=== PATIENT | female | born 1985 | race Caucasian/White ===

== ENCOUNTER 2020-06-19 03:19 | Inpatient (IN) ==
[2020-06-19] MEDS ORDERED: HYDROmorphone INJ 0.5 MG/0.5 ML SYR IV STA (03:50)
[2020-06-19] MEDS ORDERED: PROMETHAZINE 12.5 MG/50.5 ML BAG IV STA ×2 (03:50→07:36)
[2020-06-19] MEDS ORDERED: SODIUM CHLORIDE 0.9% 1000ML 1,000 ML IV ONE ×2 (03:50→06:43)
--- NOTE | 2020-06-19 04:24 | Emergency Department Note ---
History of Present Illness General Chief complaint: Rectal Bleed Stated complaint: RECTAL BLEED,NAUSEA,VOMITING Time Seen by Provider: 06/19/20 03:33 Source: patient Mode of arrival: ambulatory Limitations: no limitations History of Present Illness Provider complaint: nausea, vomiting, bloody diarrhea, abdominal pain Onset (ago): day(s) 2 Location: abdomen Radiation: non-radiation Severity: moderate Pain Consistency: + constant Maximum Pain Intensity: 6 Quality: + constant Relieved By: + none Exacerbated By: + none Associated symptoms: + loss of appetite, + nausea/vomiting and + weakness; no fever/chills Treatments prior to arrival: none This is a 34-year-old female with complicated past medical history including Crohn's disease who presents due to concern for possible Crohn's flare. Patient states 2 days ago she began having abdominal pain and nausea, and then last night developed vomiting and diarrhea. Patient states there is no blood in her emesis, however her bowel movements have been grossly bloody with passage of small clots. Patient states her abdominal pain is in the left mid abdomen which is consistent with prior Crohn's flares. Patient states Crohn's flares are typically triggered by dietary change or stress. Patient denies any recent change in medications. Patient does take anticoagulation due to a history of factor V Leiden and prior blood clots. Patient does get Humira injections help with her Crohn's disease. Patient states she has not seen her executive chef in some time, however states he is at [facility]. Patient denies any accompanying fevers or chills. Patient denies any known exposure to any coronavirus positive individuals. Patient does admit to recent travel, stating that she and family were at [place] 2 weeks ago. Pt states this feels like her usual Crohn's flare. She does not want a CT as she has had multiple in her lifetime. Pt seen during a time of high acuity and national emergency pandemic while wearing PPE. Home Medications Home Medications Medication Instructions Recorded Confirmed Type dicyclomine [Bentyl] 0 mg IM UD PRN 04/07/20 06/19/20 History infliximab [Remicade] 0 mg IV Q8WK 04/07/20 06/19/20 History multivitamin 1 tab PO QAM 04/07/20 06/19/20 History Allergies Allergy/AdvReac Type Severity Reaction Status Date / Time metoclopramide Allergy Intermediate nausea/vomi Unverified 06/19/20 06:15 ting oxycodone Allergy Intermediate pruritis Unverified 06/19/20 06:15 adhesive Allergy Mild skin Unverified 06/19/20 06:15 irritation Penicillins Allergy Mild rx as a Unverified 06/19/20 06:15 child prochlorperazine Allergy Mild nausea/vomi Unverified 06/19/20 06:15 ting tramadol Allergy Mild pruritis Verified 06/19/20 06:15 Iodinated Contrast Media AdvReac Mild itching Unverified 06/19/20 06:15 mushroom AdvReac Verified 06/19/20 11:46 Past Med/Surg History Medical History History of cancer of uterus Hx of Crohn's disease Ovarian torsion Surgical History History of bowel resection Hx of appendectomy Hx of cholecystectomy Hx of hysterectomy Family History Other Cancer Social History Smoking Status: Never smoker Hx Alcohol Use: Yes Hx Substance Use: No Preferred Language: Irish Beliefs That Will Affect Care: None marital status: Single Current Living Situation: Alone current occupational status: unemployed Other Information That Helps Us Care for You: No Feels Safe at Home: Yes Safety Concerns: Feels Safe At This Time Review of Systems See HPI for pertinent positives & negatives. and A total of 10 systems reviewed and were otherwise negative Physical Exam Vital Signs Vital Signs - 24 hr 06/19/20 05:09 06/19/20 05:30 06/19/20 06:00 Pulse Rate 58 L 65 63 Pulse Rate from SpO2 Sensor 58 L 64 Respiratory Rate 22 17 18 Blood Pressure 123/80 118/74 117/84 Blood Pressure Mean 103 77 89 Pulse Oximetry 96 98 100 Oxygen Delivery Method Room Air Room Air Room Air 06/19/20 06:32 06/19/20 06:33 06/19/20 07:18 Pulse Rate 77 81 69 Pulse Rate from SpO2 Sensor 70 Respiratory Rate 14 13 23 Blood Pressure 126/81 Blood Pressure Mean 92 Pulse Oximetry 100 91 Oxygen Delivery Method Room Air 06/19/20 07:26 06/19/20 07:30 06/19/20 08:00 Pulse Rate 77 89 67 Pulse Rate from SpO2 Sensor 78 Respiratory Rate 17 18 19 Blood Pressure 110/98 Blood Pressure Mean 100 Pulse Oximetry 93 Oxygen Delivery Method GENERAL: alert, well appearing, well nourished, no distress, non-toxic EYE EXAM: normal conjunctiva, PERRL and EOM's grossly intact OROPHARYNX: no exudate, no erythema, lips, buccal mucosa, and tongue normal and mucous membranes are dry NECK: supple, no nuchal rigidity, no adenopathy, non-tender, scarring noted consistent with prior central line placement LUNGS: Clear to auscultation. Normal chest wall mechanics, no w/r/r HEART: no murmurs, S1 normal and S2 normal ABDOMEN: abdomen soft, tender to palpation of the left lateral abdomen, normo- active bowel sounds, no masses, no rebound or guarding. Multiple well healed surgical scars BACK: Back is symmetrical on inspection and there is no deformity, no midline tenderness, no CVA tenderness. SKIN: no rashes and no bruising UPPER EXTREMITIES: upper extremities are grossly normal. FROM, nml pulses b/l. Multiple scars from prior IV starts, ecchymotic area to proximal RUE from recent IV infusion LOWER EXTREMITIES: No pitting edema. FROM, nml pulses b/l. NEURO EXAM: Normal sensorium, cranial nerves II-XII grossly intact, normal speech, no gross weakness of arms, no gross weakness of legs. Gross sensation intact. Procedures Central Line Placement Right IJ: Time Out Performed: Yes Patient Placed on Monitor/Pulse Ox: Yes MD Prep: mask, gown and gloves Central Line Prep: Chlorhexidine scrub and sterile drapes applied Local Anesthetic: lidocaine 1% Amount of anesthesia used (mL): 5 Ultrasound Used for Placement: Yes Central Line Lumen Inserted: triple Post Procedure: sutured in place, good blood return, all ports aspirated, flushed, capped and sterile dressing applied Post Procedure X-Ray: tip of catheter in good position and no pneumothorax seen Patient Tolerated Procedure: well Complications: none Course Course 05: Patient with a history of difficult IV access. IV team was contacted initially and was unsuccessful in obtaining labs or placing an IV on the patient. After this nursing staff and myself attempted a peripheral line with the use of ultrasound. This was unsuccessful as well and patient had difficulty tolerating this procedure due to pain. I then discussed with the patient placement of central line which she has had previously due to poor IV access. Patient states she has had these previously, and in this case feels this may be better. We discussed technique, the procedure, risks versus benefits of central line placement and she was in agreement. Consent form signed at bedside in the presence of nurse Alisa. Please see additional procedure note. Patient tolerated procedure well. 0715: Patient updated on results. Patient states she is still having abdominal pain and nausea. Still feeling itchy from the pain medications. 0722: Case discussed with Dr. Juarez. Administered Medications Diphenhydramine HCl (Benadryl) 25 mg IV Q4H PRN PRN Reason: Itching Stop: 07/19/20 09:50 Last Admin: 06/19/20 21:14 Dose: 25 mg Documented by: [id number] Admin: 06/19/20 16:57 Dose: 25 mg Documented by: [id number] Admin: 06/19/20 16:49 Dose: 25 mg Documented by: [id number] Heparin Sodium (Beef Lung) (Heparin Sod 10 Unit/Ml Flush) 5 ml FLUSH PRN PRN PRN Reason: Flush Stop: 07/19/20 10:35 Last Admin: 06/19/20 14:45 Dose: 5 ml Documented by: [id number] Admin: 06/19/20 12:40 Dose: 5 ml Documented by: [id number] Admin: 06/19/20 10:53 Dose: 5 ml Documented by: [id number] Admin: 06/19/20 10:47 Dose: 5 ml Documented by: [id number] Hydromorphone HCl (Dilaudid) 0.5 mg IV Q2H PRN PRN Reason: Pain Stop: 07/03/20 09:50 Last Admin: 06/19/20 23:34 Dose: 0.5 mg Documented by: [id number] Admin: 06/19/20 21:15 Dose: 0.5 mg Documented by: [id number] Admin: 06/19/20 18:50 Dose: 0.5 mg Documented by: [id number] Admin: 06/19/20 16:49 Dose: 0.5 mg Documented by: [id number] Admin: 06/19/20 14:44 Dose: 0.5 mg Documented by: [id number] Admin: 06/19/20 12:39 Dose: 0.5 mg Documented by: [id number] Admin: 06/19/20 10:46 Dose: 0.5 mg Documented by: [id number] Sodium Chloride (Nss 1000ml) 1,000 mls @ 80 mls/hr IV .[id number] SHANNAN Stop: 07/19/20 09:50 Last Admin: 06/19/20 20:40 Dose: 80 mls/hr Documented by: [id number] Infusion: 06/19/20 20:40 Dose: 80 mls/hr Documented by: [id number] Admin: 06/19/20 10:42 Dose: 80 mls/hr Documented by: [id number] Methylprednisolone 60 mg/ (Syringe) 0.96 mls @ 1.5 mls/min IV Q24H SHANNAN Stop: 07/19/20 09:59 Last Admin: 06/19/20 10:53 Dose: 1.5 mls/min Documented by: [id number] Iron Sucrose 300 mg/ Sodium (Chloride) 265 mls @ 176.667 mls/hr IV DAILY SHANNAN Stop: 06/21/20 10:29 Last Infusion: 06/19/20 16:24 Dose: 0 mls/hr Documented by: [id number] Admin: 06/19/20 14:37 Dose: 176.7 mls/hr Documented by: [id number] Ondansetron HCl (Zofran) 4 mg IV Q4H PRN PRN Reason: Nausea Stop: 07/19/20 09:50 Last Admin: 06/19/20 18:50 Dose: 4 mg Documented by: [id number] Discontinued Medications Dicyclomine HCl (Bentyl) 20 mg IM NOW ONE Stop: 06/19/20 07:36 Last Admin: 06/19/20 08:23 Dose: Not Given Documented by: [id number] Diphenhydramine HCl (Benadryl) Confirm Administered Dose 50 mg .ROUTE .STK-MED ONE Stop: 06/19/20 05:46 Last Admin: 06/19/20 05:59 Dose: Not Given Documented by: [id number] Diphenhydramine HCl (Benadryl) 25 mg IV NOW STA Stop: 06/19/20 05:46 Last Admin: 06/19/20 05:59 Dose: 25 mg Documented by: [id number] Diphenhydramine HCl (Benadryl) 25 mg IV NOW STA Stop: 06/19/20 06:44 Last Admin: 06/19/20 06:49 Dose: 25 mg Documented by: [id number] Diphenhydramine HCl (Benadryl) 25 mg IV Q6H PRN PRN Reason: Itching Stop: 07/19/20 09:50 Last Admin: 06/19/20 12:39 Dose: 25 mg Documented by: [id number] Famotidine (Pepcid 20mg Iv Push) 20 mg IV ONE STA Stop: 06/19/20 06:57 Last Admin: 06/19/20 07:15 Dose: 20 mg Documented by: [id number] Hydromorphone HCl (Dilaudid) 0.5 mg IV NOW STA Stop: 06/19/20 03:51 Last Admin: 06/19/20 05:59 Dose: 0.5 mg Documented by: [id number] Hydromorphone HCl (Dilaudid) 1 mg IV NOW STA Stop: 06/19/20 06:44 Last Admin: 06/19/20 06:51 Dose: 1 mg Documented by: [id number] Sodium Chloride (Nss 1000ml) 1,000 mls @ 999 mls/hr IV .Q1H1M ONE Stop: 06/19/20 04:50 Last Infusion: 06/19/20 07:44 Dose: 0 mls/hr Documented by: [id number] Admin: 06/19/20 05:59 Dose: 999 mls/hr Documented by: [id number] Promethazine HCl (Phenergan) 12.5 mg in 50.5 mls @ 202 mls/hr IV NOW STA Stop: 06/19/20 04:04 Last Infusion: 06/19/20 06:16 Dose: 0 mls/hr Documented by: [id number] Admin: 06/19/20 05:59 Dose: 202 mls/hr Documented by: [id number] Sodium Chloride (Nss 1000ml) 1,000 mls @ 999 mls/hr IV .Q1H1M ONE Stop: 06/19/20 07:43 Last Infusion: 06/19/20 08:19 Dose: 0 mls/hr Documented by: [id number] Admin: 06/19/20 07:01 Dose: 999 mls/hr Documented by: [id number] Acetaminophen (Ofirmev) 1,000 mg in 100 mls @ 400 mls/hr IV NOW STA Stop: 06/19/20 07:50 Last Admin: 06/19/20 08:24 Dose: Not Given Documented by: [id number] Promethazine HCl (Phenergan) 12.5 mg in 50.5 mls @ 202 mls/hr IV NOW STA Stop: 06/19/20 07:50 Last Admin: 06/19/20 08:25 Dose: Not Given Documented by: [id number] Medical Decision Making Differential Diagnosis Differential: Gastroenteritis, Food Borne, Esophageal Perforation, , Electrolyte Abnormality, Dehydration, Intraabdominal Infection, UTI/Pyelonephritis, Bowel Obstruction, Biliary Pathology, amongst other pathology entertained. Medical Records Attestation: I reviewed the patient's medical records. Home Medications Current Medication List: was personally reviewed by me Laboratory Data Attestation: I reviewed the patient's lab results. Result diagrams: 06/19/20 05:54 06/19/20 05:54 Lab Results 06/19/20 06/19/20 06/19/20 Range/Units 05:40 05:54 05:54 WBC (4.8-10.8) K/uL RBC (4.2-5.4) M/uL Hgb (12.0-16.0) g/dL Hct (37-47) % MCV (80-100) fL MCH (25-34) pg MCHC (32-36) g/dL RDW Std Deviation (36.4-46.3) fL RDW Coeff of Jael (11.5-14.5) % Plt Count (130-400) K/uL Immature Gran % (Auto) % Neut % (Auto) % Lymph % (Auto) % Putnam % (Auto) % Eos % (Auto) % Baso % (Auto) % Neut # (Auto) (1.4-6.5) K/uL Lymph # (Auto) (1.2-3.4) K/uL Putnam # (Auto) (0.11-0.59) K/uL Eos # (Auto) (0-0.5) K/uL Baso # (Auto) (0-0.2) K/uL Immature Gran # (Auto) (0.00-0.02) K/uL Anisocytosis Ovalocytes Sodium (136-145) mmol/L Potassium (3.5-5.1) mmol/L Chloride (98-107) mmol/L Carbon Dioxide (21-32) mmol/L Anion Gap (3-11) BUN (7-18) mg/dl Creatinine (0.6-1.2) mg/dl Est Cr Clr Drug Dosing ml/min Est GFR ( Amer) Est GFR (Non-Af Amer) BUN/Creatinine Ratio (10-20) Glucose (70-99) mg/dl Lactate 1.8 (0.4-2.0) mmol/L Calcium (8.5-10.1) mg/dl Magnesium (1.8-2.4) mg/dl Total Bilirubin (0.2-1) mg/dl AST (15-37) U/L ALT (12-78) U/L Alkaline Phosphatase (45-117) U/L Total Protein (6.4-8.2) gm/dl Albumin (3.4-5.0) gm/dl Globulin (2.5-4.0) gm/dl Albumin/Globulin Ratio (0.9-2) Lipase (73-393) U/L Urine Color Yellow Urine Appearance Cloudy A (Clear) Urine pH 5.0 (4.5-7.5) Ur Specific [place] 1.020 (1.000-1.030) Urine Protein Negative (Negative) Urine Glucose (UA) Negative (Negative) Urine Ketones Negative (Negative) Urine Blood 1+ H (Negative) Urine Nitrite Negative (Negative) Urine Bilirubin Negative (Negative) Urine Urobilinogen Negative (Negative) Ur Leukocyte Esterase Negative (Negative) Urine WBC (Auto) 1-5 (0-5) /hpf Urine RBC (Auto) 0-4 (0-4) /hpf U Hyaline Cast (Auto) 1-5 (0-5) /lpf U Epithel Cells (Auto) >30 H (0-5) /lpf Urine Bacteria (Auto) 1+ H (Negative) Blood Type B Negative Antibody Screen NEGATIVE 06/19/20 06/19/20 Range/Units 05:54 05:54 WBC 8.97 (4.8-10.8) K/uL RBC 4.45 (4.2-5.4) M/uL Hgb 11.0 L (12.0-16.0) g/dL Hct 32.5 L (37-47) % MCV 73.0 L (80-100) fL MCH 24.7 L (25-34) pg MCHC 33.8 (32-36) g/dL RDW Std Deviation 53.8 H (36.4-46.3) fL RDW Coeff of Jael 20.0 H (11.5-14.5) % Plt Count 188 (130-400) K/uL Immature Gran % (Auto) 0.8 % Neut % (Auto) 92.6 % Lymph % (Auto) 4.9 % Putnam % (Auto) 1.6 % Eos % (Auto) 0.0 % Baso % (Auto) 0.1 % Neut # (Auto) 8.31 H (1.4-6.5) K/uL Lymph # (Auto) 0.44 L (1.2-3.4) K/uL Putnam # (Auto) 0.14 (0.11-0.59) K/uL Eos # (Auto) 0.00 (0-0.5) K/uL Baso # (Auto) 0.01 (0-0.2) K/uL Immature Gran # (Auto) 0.07 H (0.00-0.02) K/uL Anisocytosis Present Ovalocytes 1+ Sodium 142 (136-145) mmol/L Potassium 3.8 (3.5-5.1) mmol/L Chloride 109 H (98-107) mmol/L Carbon Dioxide 27 (21-32) mmol/L Anion Gap 6.0 (3-11) BUN 11 (7-18) mg/dl Creatinine 0.78 (0.6-1.2) mg/dl Est Cr Clr Drug Dosing 104.2 ml/min Est GFR ( Amer) 115.8 Est GFR (Non-Af Amer) 99.9 BUN/Creatinine Ratio 14.5 (10-20) Glucose 124 H (70-99) mg/dl Lactate (0.4-2.0) mmol/L Calcium 8.9 (8.5-10.1) mg/dl Magnesium 1.8 (1.8-2.4) mg/dl Total Bilirubin 0.4 (0.2-1) mg/dl AST 9 L (15-37) U/L ALT 24 (12-78) U/L Alkaline Phosphatase 67 (45-117) U/L Total Protein 7.0 (6.4-8.2) gm/dl Albumin 3.6 (3.4-5.0) gm/dl Globulin 3.4 (2.5-4.0) gm/dl Albumin/Globulin Ratio 1.1 (0.9-2) Lipase 80 (73-393) U/L Urine Color Urine Appearance (Clear) Urine pH (4.5-7.5) Ur Specific [place] (1.000-1.030) Urine Protein (Negative) Urine Glucose (UA) (Negative) Urine Ketones (Negative) Urine Blood (Negative) Urine Nitrite (Negative) Urine Bilirubin (Negative) Urine Urobilinogen (Negative) Ur Leukocyte Esterase (Negative) Urine WBC (Auto) (0-5) /hpf Urine RBC (Auto) (0-4) /hpf U Hyaline Cast (Auto) (0-5) /lpf U Epithel Cells (Auto) (0-5) /lpf Urine Bacteria (Auto) (Negative) Blood Type Antibody Screen Blood Pressure Blood Pressure Findings: Elevated blood pressure Blood Pressure Disposition: further management by hospitalist SONALI Narrative Is a 34-year-old female who presents emergency department with complaints of recurrent Crohn's flare. Patient with nausea, vomiting, bloody diarrhea, and concern for dehydration. Pt with difficult IV access and after unsuccessful attempts at peripheral, I placed a central line. Labs sent and IVF started along with meds for nausea and pain. Patient requiring several doses of pain medication as well as nausea medication. Patient given Benadryl for itching related to pain medication. Given persistent pain, nausea, risk for worsening course or outcome given patient is immunocompromised and has complicated surgical history, I discussed with her additional inpatient management. Patient did have one additional episode of bloody diarrhea while in the emergency room. Patient wanted to avoid additional CT imaging as she has had numerous prior CTs. We opted for x-rays. No evidence at this time of bacteremia/sepsis. Patient's vital signs remained stable as she was rehydrated and attempts to control her pain and nausea. Case discussed with hospitalist for additional inpatient evaluation and management. An order was placed for continuous cardiac monitoring. The monitor shows a rate of 80 with normal sinus rhythm. Impression & Plan Crohn's disease, LLQ abdominal pain, Hematochezia, Nausea & vomiting, Acute dehydration Discharge Plan Visit Data *Final* Discharge Date/Time: 06/19/20 09:25 Chief Complaint: Rectal Bleed Stated Complaint: RECTAL BLEED,NAUSEA,VOMITING ED Provider: Kristie Hinkle Discharge Problem: Crohn's disease, LLQ abdominal pain, Hematochezia, Nausea & vomiting, Acute dehydration Patient Disposition: Admitted As Inpatient Discharge Instructions Interventions: ED Discharge Assessment Last Done: 06/19/20 09:25 Discharge Problem: Crohn's disease Qualifiers: Gastrointestinal tract location: unspecified location Digestive disease compli cation type: unspecified complication Qualified Code(s): K50.919 - Crohn's disease, unspecified, with unspecified complications Nausea & vomiting Qualifiers: Vomiting type: unspecified Vomiting Intractability: non-intractable Qualified Code(s): R11.2 - Nausea with vomiting, unspecified
[2020-06-19] MEDS ORDERED: DiphenhydrAMINE HCL 50 MG/ML VIAL IV STA ×2 (05:45→06:43)
[2020-06-19] MEDS ORDERED: DiphenhydrAMINE HCL 50 MG/ML VIAL ONE (05:45)
[2020-06-19 06:03] LABS: Basophils # (auto) 0.01 K/uL (0-0.2); Basophils % (auto) 0.1 %; Hematocrit (blood only) 32.5 % (37-47); Immature Granulocytes # (auto) 0.07 K/uL (0.00-0.02); Immature Granulocytes % (auto) 0.8 %; Lymphocytes # (auto) 0.44 K/uL (1.2-3.4); Lymphocytes % (auto) 4.9 %; Mean Corpuscular Hemoglobin 24.7 pg (25-34); Mean Corpuscular Hgb Conc 33.8 g/dL (32-36); Monocytes # (auto) 0.14 K/uL (0.11-0.59); Monocytes % (auto) 1.6 %; Neutrophils # (auto) 8.31 K/uL (1.4-6.5); Neutrophils % (auto) 92.6 %; Platelet Count 188 K/uL (130-400); RDW Standard Deviation 53.8 fL (36.4-46.3); Red Blood Count 4.45 M/uL (4.2-5.4); White Blood Count 8.97 K/uL (4.8-10.8)
[2020-06-19 06:19] LABS: Albumin Level 3.6 gm/dl (3.4-5.0); BUN Creatinine Ratio 14.5 (10-20); Calcium 8.9 mg/dl (8.5-10.1); Creatinine Clr Calc Pharmacy 104.2 ml/min; Est GFR (African American) 115.8; Est GFR (Non-African American) 99.9; Magnesium 1.8 mg/dl (1.8-2.4); Potassium 3.8 mmol/L (3.5-5.1)
[2020-06-19 06:22] LABS: Albumin Globulin Ratio 1.1 (0.9-2); Bilirubin,Total 0.4 mg/dl (0.2-1); Globulin 3.4 gm/dl (2.5-4.0)
[2020-06-19 06:39] LABS: Anisocytosis Present; Ovalocytes 1+
[2020-06-19 06:40] LABS: Appearance Urine Cloudy (Clear); Bacteria Urine Automated 1+ (Negative); Bilirubin Urine Negative (Negative); Blood Urine 1+ (Negative); Color Urine Yellow; Epithelial Cell Urine Auto >30 /lpf (0-5); Glucose Urine UA Negative (Negative); Ketones Urine Negative (Negative); Leukocyte Esterase Urine Negative (Negative); Nitrite Urine Negative (Negative); Protein Urine Negative (Negative); RBC Urine Automated 0-4 /hpf (0-4); Urobilinogen Urine Negative (Negative)
[2020-06-19] MEDS ORDERED: HYDROmorphone INJ 1 MG/ML SYRINGE IV STA (06:43)
[2020-06-19] MEDS ORDERED: FAMOTIDINE 20MG/5ML IV PUSH IV STA (06:56)
--- NOTE | 2020-06-19 07:26 | XRay Report ---
SINGLE VIEW CHEST CLINICAL HISTORY: Central venous catheter placement. FINDINGS: An AP, portable, upright chest radiograph is compared to study performed earlier the same d ay 06/19/2020. The examination is degraded by portable technique and patient rotation. A right interna l jugular central venous catheter has been placed. The tip projects over the SVC. The cardiomediastin al silhouette is unremarkable. The lungs and pleural spaces are clear. No pneumothorax is seen. The b adwoa thorax is grossly intact. IMPRESSION: 1. A right internal jugular central venous catheter has been placed as above. 2. No pneumothorax is seen post procedure. 3. There is no airspace consolidation or large pleural effusion. ACT 112: Negative or not required by law. Electronically signed by: Reggie Contreras M.D. 06/19/2020 7:25 AM
[2020-06-19] MEDS ORDERED: DICYCLOMINE HCL 10 MG/ML 2 ML AMP/VIAL IM ONE (07:35)
[2020-06-19] MEDS ORDERED: ACETAMINOPHEN 1,000 MG/100 ML VIAL IV STA (07:36)
--- NOTE | 2020-06-19 08:15 | XRay Report ---
AP CHEST WITH ABDOMINAL SERIES CLINICAL HISTORY: Nausea and vomiting. Diarrhea. FINDINGS: An AP upright chest radiograph is obtained. No prior studies are available for comparison at the time of dictation. The cardiomediastinal silhouette is unremarkable. The lungs and pleural spaces are patric ar. No pneumothorax is seen. The bony thorax is grossly intact. Supine and erect abdominal radiographs are correlated with abdominal CT dated 04/07/2020. Cholecystect umang clips are seen in the right upper quadrant and an IVC filter is in place. Suture material seen in the right mid abdomen. Surgical clips and suture material are noted in the pelvis. There is a nonobs tructed abdominal bowel gas pattern. No evidence of intraperitoneal free air is seen. There are no ab normal abdominal calcifications. Excreted IV contrast fills the bladder. The lumbosacral spine and kev ny pelvis appear intact. IMPRESSION: 1. No active disease in the chest. 2. Nonobstructed abdominal bowel gas pattern. 3. Postsurgical changes as above. ACT 112: Negative or not required by law. Electronically signed by: Reggie Contreras M.D. 06/19/2020 8:13 AM
--- NOTE | 2020-06-19 08:25 | History & Physical Report ---
Date of Service June 19, 2020 Assessment & Plan (1) Crohn's disease: Per patient, longstanding Crohn's with many prior surgeries. Has been to [facility] and [facility] in the past. Presently reports several days of diarrhea and bloody bowel movements. - IV steroids - IV fluids - Pain and nausea control - GI consult -> Will consult [facility] as she reports prior hx with [facility] in [place] (2) DVT prophylaxis: Has IVC filter, so must have had a DVT at some point. - SCDs - With active bleeding. History of Present Illness Primary Care Provider: NO PCP 34yo F w/ hx of Crohn's disease with many prior surgeries who presents with mild/moderate Crohn's flare. Reports that she has been in [place] since Tuesday visiting her boyfriend and began to have 15-20 mildly bloody BMs a few days ago. Also reports stomach cramping, all over, but predominantly in the LLQ. She also reports itching from the surgical tape from her [facility] TLC. She denies any fevers or chills at home, no shortness of breath, no cough, no chest pain. No urinary symptoms. She has seen a variety of GI doctors through the years. She reports most recently she saw [facility], but that her favorite GI doctor left. Allergies Allergy/AdvReac Type Severity Reaction Status Date / Time metoclopramide Allergy Intermediate nausea/vomi Unverified 06/19/20 06:15 ting oxycodone Allergy Intermediate pruritis Unverified 06/19/20 06:15 adhesive Allergy Mild skin Unverified 06/19/20 06:15 irritation Penicillins Allergy Mild rx as a Unverified 06/19/20 06:15 child prochlorperazine Allergy Mild nausea/vomi Unverified 06/19/20 06:15 ting tramadol Allergy Mild pruritis Verified 06/19/20 06:15 Iodinated Contrast Media AdvReac Mild itching Unverified 06/19/20 06:15 Home Medications Home Medications Medication Instructions Recorded Confirmed Type dicyclomine [Bentyl] 0 mg IM UD PRN 04/07/20 06/19/20 History infliximab [Remicade] 0 mg IV Q8WK 04/07/20 06/19/20 History multivitamin 1 tab PO QAM 04/07/20 06/19/20 History Past Med/Surg History Medical History History of cancer of uterus Hx of Crohn's disease Ovarian torsion Surgical History History of bowel resection Hx of appendectomy Hx of cholecystectomy Hx of hysterectomy Family History Other Cancer Social History Smoking Status: Never smoker Preferred Language: Tamazight marital status: Single Current Living Situation: Significant Other current occupational status: unemployed Feels Safe at Home: Yes Review of Systems Review of Systems: All systems reviewed & are unremarkable except as noted in HPI & below Physical Exam Constitutional: WD/WN, vitals as above Eyes: EOM intact bilaterally; no conjunctival abnormality ENMT: external ear and nose normal, oropharynx normal Neck: trachea midline, no thyromegaly normal visual inspection Respiratory: normal respiratory effort, lungs clear to auscultation no respiratory distress Cardiovascular: RRR, no murmur, no edema Gastrointestinal (Abdomen): Inspection/Auscultation: abdomen normal to inspection and + hypoactive bowel sounds; abdomen not distended Percussion/Palpation: + abdomen tender (Diffuse) and abdomen soft; no guarding and abdomen not rigid Musculoskeletal: no cyanosis or clubbing, extremities motor strength 5/5 Skin: no rashes, warm and dry Neurologic: moves all extremities and awake Psychiatric: Orientation: alert, oriented to person and cooperative Results & Data Results & Data ([facility]) Vital Signs (Past 12 Hours) Vital Signs Temp Pulse Resp BP Pulse Ox 06/19/20 06:32 77 14 126/81 100 06/19/20 06:00 63 18 117/84 100 06/19/20 05:30 65 17 118/74 98 06/19/20 05:09 58 L 22 123/80 96 06/19/20 03:24 36.8 C 66 18 101/65 97 PG Care Time/CCT Total # of Minutes Spent Total Time Spent with Patient: Total time spent is greater than 50% in coordin ation of care (as documented) at patient's floor/unit and/or counseling patient: Coding Level of Care Code 18215 Initial Inpt Care Lvl 3 Diagnoses Crohn's disease K50.90 DVT prophylaxis Z29.9
[2020-06-19] MEDS ORDERED: ACETAMINOPHEN 325 MG TAB PO PRN (09:51)
[2020-06-19] MEDS ORDERED: ONDANSETRON INJ 2 MG/ML 2 ML VIAL IV PRN (09:51)
[2020-06-19] MEDS ORDERED: DiphenhydrAMINE HCL 50 MG/ML VIAL IV PRN (09:51)
[2020-06-19] MEDS ORDERED: methylPREDNISolone 125 MG/2 ML VIAL IV SCH (09:51)
[2020-06-19] MEDS ORDERED: DICYCLOMINE HCL 20 MG TAB PO PRN (09:51)
[2020-06-19] MEDS: SODIUM CHLORIDE 0.9% 1000ML 1,000 ML IV SCH ×2 (10:42→20:40)
[2020-06-19] MEDS: HYDROmorphone INJ 0.5 MG/0.5 ML SYR IV PRN ×7 (10:46→23:34)
[2020-06-19] MEDS: methylPREDNISolone 60 MG in SYRINGE 0 ML IV SCH (10:53)
[2020-06-19] MEDS: IRON SUCROSE 300 MG in SODIUM CHLORIDE 0.9% 250 ML IV SCH (14:37)
--- NOTE | 2020-06-19 15:39 | Consultation Report ---
DATE OF CONSULTATION: 06/19/2020 GASTROINTESTINAL CONSULT NOTE REASON FOR EVALUATION: Rectal bleeding and remote history of Crohn disease. HISTORY OF PRESENT ILLNESS: The patient is a 34-year-old hospitalized today with nausea, vomiting, epigastric pain and rectal bleeding. The patient states the blood is red and the symptoms began 2 days ago. She has tried to take Tylenol for the pain, but it did not relieve it. She presented to the Emergency Room today for further evaluation. She had a chest and abdominal series, which were negative for any acute disease. She has mild anemia. The patient reports no diarrhea. Her history of Crohn disease is somewhat sketchy. She states she was diagnosed several years ago in [place] and was treated with Remicade. She admits that she is not taking good care of herself, that she was getting Remicade infusions at [place] up until 2 years ago when she decided to stop taking them and has been on no treatment at all for her Crohn's. It is not clear whether the Crohn's involved the colon or small bowel or any other areas. She did have several operations in her bowel for rectal trauma, which is reportedly self-induced from an underlying Munchausen syndrome. She was admitted to [place] in 02/2019 with rectal bleeding and had a sigmoid exam that just showed some rectal inflammation, but not consistent with Crohn disease, more consistent with some local irritation or trauma. The remainder of the exam was negative and there were no signs of active Crohn disease. Apparently, the patient has not followed up there since. Previously she was followed in [place], [facility], [facility] and [place], but currently does not have any physician either primary care or specialty care. She recently moved in with her boyfriend in [place]. Her boyfriend works at [employer] and that is why she ended up here at our hospital. PAST MEDICAL AND SURGICAL HISTORY: Extensive and includes cholecystectomy, appendectomy, hysterectomy for endometrial cancer. She had a torsion of her left ovary that was removed. She has a factor V Leiden deficiency with DVT and pulmonary embolism and has an inferior vena cava filter. She has Munchausen syndrome as reported at [facility]. She has had multiple reported colonic resections for inflammatory bowel disease at the . She has a history of coarctation of the aorta, status post correction in the past. She has anxiety and PTSD. ALLERGIES: IV DYE, VANCOMYCIN, TORADOL, COMPAZINE, REGLAN, ADHESIVE BANDAGES, AMOXICILLIN, AND VISTARIL. SOCIAL HISTORY: The patient lives with her boyfriend in [place]. Does not smoke, does not use alcohol. She is currently unemployed. FAMILY HISTORY: Negative for GI cancers or inflammatory bowel disease. REVIEW OF SYSTEMS: Positive for itchy skin. Remainder is negative. PHYSICAL EXAMINATION: GENERAL: The patient appears in no acute distress. She is scratching several places on her body. VITAL SIGNS: Normal. ABDOMEN: Shows a midline scar with possible small incisional hernia in the epigastric area. This area is also tender. There is no hepatosplenomegaly. The patient is currently receiving IV iron infusion. IMPRESSION AND PLAN: The patient is having nausea and vomiting and rectal bleeding with remote history of Crohn disease. It is unclear whether this represents hemorrhoids, Crohn's or some other possible trauma. Because of rectal bleeding, nausea, and vomiting, she will be evaluated with an EGD and the rectal bleeding with a flexible sigmoidoscopy tomorrow under sedation.
[2020-06-19] MEDS: DiphenhydrAMINE HCL 50 MG/ML VIAL IV PRN ×3 (16:49→21:14)
[2020-06-20] MEDS: DiphenhydrAMINE HCL 50 MG/ML VIAL IV PRN ×4 (05:45→19:27)
[2020-06-20] MEDS: HYDROmorphone INJ 0.5 MG/0.5 ML SYR IV PRN ×8 (06:06→23:17)
[2020-06-20 06:22] LABS: Hematocrit (blood only) 29.8 % (37-47); Hemoglobin 9.8 g/dL (12.0-16.0); Mean Corpuscular Hemoglobin 24.4 pg (25-34); Mean Corpuscular Hgb Conc 32.9 g/dL (32-36); Mean Corpuscular Volume 74.3 fL (80-100); Platelet Count 192 K/uL (130-400); RDW Standard Deviation 55.1 fL (36.4-46.3); Red Blood Count 4.01 M/uL (4.2-5.4); White Blood Count 9.82 K/uL (4.8-10.8)
[2020-06-20 07:07] LABS: BUN Creatinine Ratio 8.9 (10-20); Calcium 8.3 mg/dl (8.5-10.1); Creatinine Clr Calc Pharmacy 105.9 ml/min; Est GFR (African American) 133.2; Est GFR (Non-African American) 114.9; Magnesium 1.7 mg/dl (1.8-2.4); Potassium 3.3 mmol/L (3.5-5.1)
[2020-06-20] MEDS: SODIUM CHLORIDE 0.9% 1000ML 1,000 ML IV SCH ×2 (07:40→21:05)
[2020-06-20] MEDS: methylPREDNISolone 60 MG in SYRINGE 0 ML IV SCH (09:37)
[2020-06-20] MEDS: IRON SUCROSE 300 MG in SODIUM CHLORIDE 0.9% 250 ML IV SCH (09:37)
[2020-06-20] MEDS: POTASSIUM CHLORIDE / WTR 10 MEQ/100 ML PLCT IV SCH ×3 (12:17→16:49)
[2020-06-20] MEDS: MAGNESIUM SULFATE / D5W 1 GM/100 ML BAG IV SCH ×3 (12:18→18:32)
--- NOTE | 2020-06-20 12:30 | Anesthesiology Consultation ---
Date of Service June 20, 2020 Assessment & Plan Chart Review Chart Review: Acceptable Risk for Surgery Consults Requested none ASA ASA4 Proposed Anesthesia Anesthesia Type: MAC Risk / Benefits Reviewed With: PT / POA / Parent / Guardian, Accepts Plan and Informed Consent Obtained History Surgery Operation Date: 06/20/20 16:30 Proposed Procedures p Esophagogastroduodenoscopy Dr Paige garcia Flexible Sigmoidoscopy Dr Paige Gibson Height/Weight Height: 5 ft 5 in Weight: 63.503 kg Allergies Allergy/AdvReac Type Severity Reaction Status Date / Time metoclopramide Allergy Intermediate nausea/vomi Unverified 06/19/20 06:15 ting oxycodone Allergy Intermediate pruritis Unverified 06/19/20 06:15 adhesive Allergy Mild skin Unverified 06/19/20 06:15 irritation Penicillins Allergy Mild rx as a Unverified 06/19/20 06:15 child prochlorperazine Allergy Mild nausea/vomi Unverified 06/19/20 06:15 ting tramadol Allergy Mild pruritis Verified 06/19/20 06:15 Iodinated Contrast Media AdvReac Mild itching Unverified 06/19/20 06:15 mushroom AdvReac Verified 06/19/20 11:46 Medications Home Medications Medication Instructions Recorded Confirmed Last Taken dicyclomine [Bentyl] 0 mg IM UD PRN 04/07/20 06/19/20 04/06/20 infliximab [Remicade] 0 mg IV Q8WK 04/07/20 06/19/20 Unknown multivitamin 1 tab PO QAM 04/07/20 06/19/20 04/07/20 Active Medications Generic Name Dose Route Start Last Admin Trade Name Freq PRN Reason Stop Dose Admin Diphenhydramine HCl 25 mg 06/19/20 16:34 06/20/20 13:37 Benadryl IV 07/19/20 09:50 25 mg Q4H PRN Administration Itching Heparin Sodium (Beef Lung) 5 ml 06/19/20 10:36 06/20/20 12:46 Heparin Sod 10 Unit/Ml Flush FLUSH 07/19/20 10:35 5 ml PRN PRN Administration Flush Hydromorphone HCl 0.5 mg 06/19/20 09:51 06/20/20 12:45 Dilaudid IV 07/03/20 09:50 0.5 mg Q2H PRN Administration Pain Sodium Chloride 1,000 mls @ 80 mls/hr 06/19/20 09:51 06/20/20 07:40 Nss 1000ml IV 07/19/20 09:50 80 mls/hr .[id number] SHANNAN Administration Methylprednisolone 60 mg/ 0.96 mls @ 1.5 mls/min 06/19/20 10:00 06/20/20 09:37 Syringe IV 07/19/20 09:59 1.5 mls/min Q24H SHANNAN Administration Iron Sucrose 300 mg/ Sodium 265 mls @ 176.667 mls/hr 06/19/20 13:15 06/20/20 11:38 Chloride IV 06/21/20 10:29 Infused DAILY SHANNAN Infusion Magnesium Sulfate/Dextrose 1 gm in 100 mls @ 50 mls/hr 06/20/20 12:00 06/20/20 12:18 Magnesium Sulfate / D5w IV 06/20/20 17:59 50 mls/hr Q2H SHANNAN Administration Potassium Chloride 10 meq in 100 mls @ 100 mls/hr 06/20/20 12:00 06/20/20 13:12 K [place] / Wtr IV 06/20/20 14:59 100 mls/hr Q1H SHANNAN Administration Ondansetron HCl 4 mg 06/19/20 09:51 06/19/20 18:50 Zofran IV 07/19/20 09:50 4 mg Q4H PRN Administration Nausea NPO Date Last Intake of Fluids: 06/20/20 Date Last Intake of Solids: 06/19/20 Past Medical History Medical History (Updated 06/20/20 @ 12:27 by Madhuri Gudino DO) Anemia Anxiety Coarctation of aorta s/p repair Factor V Leiden History of cancer of uterus History of DVT (deep vein thrombosis) (Resolved) History of pulmonary embolism (Resolved) Hx of Crohn's disease Munchausen syndrome Ovarian torsion PTSD (post-traumatic stress disorder) Rectal trauma (Resolved) History of Exercise / Class Metabolic Activity III < 4 Walking/Shop/Light housework Past Family History Family History Other Cancer Past Surgical History Surgical History (Updated 06/20/20 @ 12:29 by Madhuri Gudino DO) H/O aortic coarctation repair (Resolved) History of bowel resection History of esophagogastroduodenoscopy (EGD) (Resolved) History of right oophorectomy Hx of appendectomy Hx of cholecystectomy Hx of colonoscopy (Resolved) Hx of hysterectomy S/P IVC filter (Resolved) Past Anesthesia History No Hx of Anesthesia Complications and No Family Hx of Anesthesia Complications History of PONV No Hx of PONV and No Hx of Motion Sickness Social History Smoking Status: Never smoker Hx Alcohol Use: Yes alcohol intake frequency: holidays/special occasions only Hx Substance Use: No Physical Exam Vital Signs Last Vital Signs Temp 36.5 C 06/20/20 07:43 Pulse 58 L 06/20/20 12:53 Resp 17 06/20/20 12:53 BP 119/79 06/20/20 12:53 Pulse Ox 95 06/20/20 12:53 ENMT Mouth: + dental caries and + poor dentition; no TMJ abnormality Thyromental Distance: > or= 3.5 Finger Breadths Mallampati Class: III Neck normal visual inspection and trachea midline; neck extension not limited Respiratory normal respiratory effort Auscultation: lungs clear to auscultation bilaterally Cardiovascular Rate/Rhythm: regular rate and regular rhythm Heart Sounds: no murmur Musculoskeletal Spine: normal cervical ROM Extremities: full ROM of extremities Neurologic moves all extremities Psychiatric Orientation: alert and oriented x 3 Testing Laboratory Results 06/20/20 05:37 06/20/20 05:37 Urine Color Yellow 06/19/20 05:40 Urine Appearance Cloudy (Clear) A 06/19/20 05:40 Urine pH 5.0 (4.5-7.5) 06/19/20 05:40 Ur Specific [place] 1.020 (1.000-1.030) 06/19/20 05:40 Urine Protein Negative (Negative) 06/19/20 05:40 Urine Glucose (UA) Negative (Negative) 06/19/20 05:40 Urine Ketones Negative (Negative) 06/19/20 05:40 Urine Nitrite Negative (Negative) 06/19/20 05:40 Ur Leukocyte Esterase Negative (Negative) 06/19/20 05:40 Urine WBC (Auto) 1-5 /hpf (0-5) 06/19/20 05:40 Urine RBC (Auto) 0-4 /hpf (0-4) 06/19/20 05:40 U Hyaline Cast (Auto) 1-5 /lpf (0-5) 06/19/20 05:40 U Epithel Cells (Auto) >30 /lpf (0-5) H 06/19/20 05:40 Urine Bacteria (Auto) 1+ (Negative) H 06/19/20 05:40 Blood Type B Negative 06/19/20 05:54 Antibody Screen NEGATIVE 06/19/20 05:54 Chest X-Ray Date: 06/19/20 Findings: + NAD
[2020-06-20] MEDS ORDERED: DiphenhydrAMINE HCL 50 MG/ML VIAL ONE (14:27)
[2020-06-20] MEDS ORDERED: MIDAZOLAM HCL 1 MG/ML 2ML VIAL ONE (14:27)
--- NOTE | 2020-06-20 14:30 | History & Physical Report ---
Date of Service June 20, 2020 History of Present Illness Chief Complaint: Vomiting , rectal bleeding Primary Care Provider: NO PCP For EGd and flex sig Allergies Allergy/AdvReac Type Severity Reaction Status Date / Time metoclopramide Allergy Intermediate nausea/vomi Unverified 06/19/20 06:15 ting oxycodone Allergy Intermediate pruritis Unverified 06/19/20 06:15 adhesive Allergy Mild skin Unverified 06/19/20 06:15 irritation Penicillins Allergy Mild rx as a Unverified 06/19/20 06:15 child prochlorperazine Allergy Mild nausea/vomi Unverified 06/19/20 06:15 ting tramadol Allergy Mild pruritis Verified 06/19/20 06:15 Iodinated Contrast Media AdvReac Mild itching Unverified 06/19/20 06:15 mushroom AdvReac Verified 06/19/20 11:46 Home Medications Home Medications Medication Instructions Recorded Confirmed Type dicyclomine [Bentyl] 0 mg IM UD PRN 04/07/20 06/19/20 History infliximab [Remicade] 0 mg IV Q8WK 04/07/20 06/19/20 History multivitamin 1 tab PO QAM 04/07/20 06/19/20 History Past Med/Surg History Medical History (Updated 06/20/20 @ 12:27 by Madhuri Gudino DO) Anemia Anxiety Coarctation of aorta s/p repair Factor V Leiden History of cancer of uterus History of DVT (deep vein thrombosis) (Resolved) History of pulmonary embolism (Resolved) Hx of Crohn's disease Munchausen syndrome Ovarian torsion PTSD (post-traumatic stress disorder) Rectal trauma (Resolved) History of Surgical History (Updated 06/20/20 @ 12:29 by Madhuri Gudino DO) H/O aortic coarctation repair (Resolved) History of bowel resection History of esophagogastroduodenoscopy (EGD) (Resolved) History of right oophorectomy Hx of appendectomy Hx of cholecystectomy Hx of colonoscopy (Resolved) Hx of hysterectomy S/P IVC filter (Resolved) Family History Other Cancer Social History Smoking Status: Never smoker Hx Alcohol Use: Yes Hx Substance Use: No Preferred Language: Greenlandic Beliefs That Will Affect Care: None marital status: Single Current Living Situation: Alone current occupational status: unemployed Other Information That Helps Us Care for You: No Feels Safe at Home: Yes Safety Concerns: Feels Safe At This Time Physical Exam Constitutional: + obese Respiratory: normal respiratory effort Cardiovascular: Rate/Rhythm: regular rate and regular rhythm Gastrointestinal (Abdomen): Midline scar Results & Data Vital Signs (Past 12 Hours) Vital Signs Temp Pulse Resp BP Pulse Ox 06/20/20 12:53 58 L 17 119/79 95 06/20/20 07:43 36.5 C 61 18 106/74 97 Code Status & VTE Plan VTE Prophylaxis Plan VTE Prophylaxis will be ordered: Yes
[2020-06-20] MEDS ORDERED: LIDOCAINE HCL 2% 2 ML VIAL/AMP(20MG/ML) INFIL ONE (14:53)
[2020-06-20] MEDS ORDERED: PROPOFOL IV EMULSION 10 MG/ML 20 ML VIAL IV ONE (14:53)
--- NOTE | 2020-06-20 14:57 | GI REPORT ---
Patient Name: Roxanne Partida Procedure Date: 06/20/2020 2:18 PM Date of : 1985 Admit Type: Inpatient Age: 34 Gender: Female Attending MD: Ed Gibson MD Procedure: Upper GI endoscopy Providers: Ed Gibson MD Referring MD: Maykel Russo Md Indications: Nausea with vomiting Medicines: Midazolam 2 mg IV, Propofol total dose 100 mg IV, Lidocaine 80 mg IV, Benadryl 50 mg IV Complications: No immediate complications. Estimated Blood Loss: Estimated blood loss: none. Procedure: Pre-Anesthesia Assessment: - Prior to the procedure, a History and Physical was performed, and patient medications, allergies and sensitivities were reviewed. The patient's tolerance of previous anesthesia was reviewed. - The risks and benefits of the procedure and the sedation options and risks were discussed with the patient. All questions were answered and informed consent was obtained. After obtaining informed consent, the endoscope was passed under direct vision. Throughout the procedure, the patient's blood pressure, pulse, and oxygen saturations were monitored continuously. The Endoscope was introduced through the mouth, and advanced to the second part of duodenum. The upper GI endoscopy was accomplished without difficulty. The patient tolerated the procedure well. Findings: The examined esophagus was normal. The Z-line was regular and was found 39 cm from the incisors. The entire examined stomach was normal. The examined duodenum was normal. Impression: - Normal esophagus. - Z-line regular, 39 cm from the incisors. - Normal stomach. - Normal examined duodenum. - No specimens collected. Recommendation: - Return patient to [facility] for ongoing care. Ed Gibson M.D. Ed Gibson MD 06/20/2020 2:57:18 PM This report has been signed electronically. Note Initiated On: 06/20/2020 2:18 PM Number of Addenda: 0 I attest to the content of the Intraoperative Record and orders documented therein, exceptions below {[id number]}
--- NOTE | 2020-06-20 15:00 | Anesthesiology Progress Note ---
Date of Service June 20, 2020 Anesthesia Post Procedure Vital Signs Vital Signs: Temp Pulse Resp BP Pulse Ox 06/20/20 14:27 36.6 C 59 L 18 113/41 L 96 06/20/20 12:53 58 L 17 119/79 95 06/20/20 07:43 36.5 C 61 18 106/74 97 06/19/20 23:25 36.7 C 78 14 100/66 93 06/19/20 15:31 36.5 C 70 18 104/69 94 Pain Intensity Abdomen: Pain Intensity: 5 Transfer of Care Handoff Completed per policy Notes Mental Status: alert / awake / arousable Patient Amnestic to Procedure: Yes Nausea / Vomiting: adequately controlled Pain: adequately controlled Airway Patency, RR, SpO2: stable & adequate BP & HR: stable & adequate Hydration State: stable & adequate Anesthetic Complications: no major complications apparent and Pt Satisfied with anesthetic care
--- NOTE | 2020-06-20 15:03 | GI REPORT ---
Patient Name: Roxanne Partida Procedure Date: 06/20/2020 2:15 PM Date of : 1985 Admit Type: Inpatient Age: 34 Gender: Female Attending MD: Ed Gibson MD Procedure: Flexible Sigmoidoscopy Providers: Ed Gibson MD Referring MD: Maykel Russo Md Indications: Rectal hemorrhage Medicines: Midazolam 2 mg IV, Propofol total dose 100 mg IV, Lidocaine 80 mg IV, Benadryl 50 mg IV Complications: No immediate complications. Estimated Blood Loss: Estimated blood loss was minimal. Procedure: Pre-Anesthesia Assessment: - Prior to the procedure, a History and Physical was performed, and patient medications, allergies and sensitivities were reviewed. The patient's tolerance of previous anesthesia was reviewed. - The risks and benefits of the procedure and the sedation options and risks were discussed with the patient. All questions were answered and informed consent was obtained. After obtaining informed consent, the endoscope was passed under direct vision. Throughout the procedure, the patient's blood pressure, pulse, and oxygen saturations were monitored continuously. The Colonoscope was introduced through the anus and advanced to the descending colon. The flexible sigmoidoscopy was accomplished without difficulty. The patient tolerated the procedure well. The quality of the bowel preparation was fair. Findings: Red blood was found in the rectum. There was evidence of a prior end-to-side colo-colonic anastomosis in the mid rectum. This was patent and was characterized by healthy appearing mucosa. The anastomosis was traversed. There was evidence of a prior end-to-end colo-colonic anastomosis at 30 cm proximal to the anus. This was patent and was characterized by healthy appearing mucosa. The anastomosis was traversed. A localized area of mildly erythematous mucosa was found in the rectum. There was formed stool at 30 cm. Impression: - Preparation of the colon was fair. - Blood in the rectum. - Patent end-to-side colo-colonic anastomosis, characterized by healthy appearing mucosa. - Patent end-to-end colo-colonic anastomosis, characterized by healthy appearing mucosa. - Erythematous mucosa in the rectum. - No specimens collected. Recommendation: - Return patient to [facility] for ongoing care. Ed Gibson M.D. Ed Gibson MD 06/20/2020 3:03:11 PM This report has been signed electronically. Note Initiated On: 06/20/2020 2:15 PM Number of Addenda: 0 I attest to the content of the Intraoperative Record and orders documented therein, exceptions below {[id number]}
[2020-06-20] MEDS ORDERED: HYDROCORTISONE ACETATE 25 MG SUPP PR ONE (15:07)
--- NOTE | 2020-06-20 16:01 | Progress Notes ---
DATE: 06/20/2020 The patient presented with nausea, vomiting, abdominal pain and some rectal bleeding, but no diarrhea. She has a complex past history and today, she underwent an EGD and flexible sigmoidoscopy to evaluate these symptoms. Her EGD was normal without any source of inflammation, ulceration or any other pathology. The rectal exam showed some fresh blood and clots in the rectum. The scope was introduced and at 20 cm, there is an anastomosis from previous surgery and then at 30 cm, another anastomosis from previous surgery. There was no blood above 10 cm and in fact at 30 cm, there was solid stool that was brown. I was able to clean the rectum with irrigation and there were no signs of active Crohn disease or bleeding hemorrhoids. There were some patchy areas of erythema that were nonspecific. These were not biopsied because of the bleeding, but I did not see any source of bleeding or any oozing to treat endoscopically. Laboratory shows a hemoglobin of 9.8, MCV 74.3. She did receive IV iron yesterday. Magnesium and calcium are both low. IMPRESSION: Endoscopic exams today showed normal upper exam and some nonspecific erythema in the rectum with some bleeding evident in the rectum, but not proximal to the rectum where there was solid brown stool coming from above and no signs of active Crohn's. It is unclear to me what the source of her abdominal pain, vomiting, and rectal bleeding is at this point. I plan on treating her symptomatically with hydrocortisone suppositories twice a day for approximately 1-[address] Prieto will be covering over the weekend.
--- NOTE | 2020-06-20 16:32 | Hospitalist Progress Note ---
Date of Service June 20, 2020 Assessment & Plan (1) Crohn's disease: Per patient, longstanding Crohn's with many prior surgeries. Has been to [facility] and [place] in the past. Presently reports several days of diarrhea and bloody bowel movements. - IV steroids - IV fluids - Pain and nausea control - GI consult -> EGD/flex sig on 06/20 showed some mild erythema/irritation in the rectum, but otherwise no indication of active Crohn's disease. (2) DVT prophylaxis: Has IVC filter, so must have had a DVT at some point. - SCDs - With active bleeding. Admission and Anticipated Discharge Date Admission Date: June 19, 2020 Subjective Still with abdominal pain, nausea. No emesis today. Reports no fevers/chills, chest pain, shortness of breath. Physical Exam Constitutional: WD/WN, vitals as above Eyes: EOM intact bilaterally; no conjunctival abnormality ENMT: external ear and nose normal, oropharynx normal Neck: trachea midline, no thyromegaly normal visual inspection Respiratory: normal respiratory effort, lungs clear to auscultation no respiratory distress Cardiovascular: RRR, no murmur, no edema Gastrointestinal (Abdomen): Inspection/Auscultation: abdomen normal to inspection and + hypoactive bowel sounds; abdomen not distended Percussion/Palpation: + abdomen tender (Diffuse) and abdomen soft; no guarding and abdomen not rigid Musculoskeletal: no cyanosis or clubbing, extremities motor strength 5/5 Skin: no rashes, warm and dry Neurologic: moves all extremities and awake Psychiatric: Orientation: alert, oriented to person and cooperative Results & Data Results & Data ([facility]) Vital Signs (Past 12 Hours) Vital Signs Temp Pulse Resp BP Pulse Ox 06/20/20 16:18 36.5 C 62 16 127/70 98 06/20/20 16:03 96 06/20/20 15:32 61 18 149/93 H 98 06/20/20 15:14 58 L 18 140/82 91 06/20/20 14:59 67 18 113/73 99 06/20/20 14:27 36.6 C 59 L 18 113/41 L 96 06/20/20 12:53 58 L 17 119/79 95 06/20/20 07:43 36.5 C 61 18 106/74 97 PG Care Time/CCT Total # of Minutes Spent Total Time Spent with Patient: Total time spent is greater than 50% in coordination of care (as documented) at patient's floor/unit and/or counseling patient: Coding Level of Care Code 94649 Subseq Hosp Care Lvl 2 Diagnoses Crohn's disease K50.919 Digestive disease complication type: unspecified complication Gastrointestinal tract location: unspecified location DVT prophylaxis Z29.9 (1) Crohn's disease Digestive disease complication type: unspecified complication Gastrointestinal tract location: unspecified location Qualified Code(s): K50.919 - Crohn's disease, unspecified, with unspecified complications
[2020-06-20] MEDS: HYDROCORTISONE ACETATE 25 MG SUPP PR SCH (21:25)
[2020-06-21] MEDS: DiphenhydrAMINE HCL 50 MG/ML VIAL IV PRN ×5 (00:14→18:18)
[2020-06-21] MEDS: HYDROmorphone INJ 0.5 MG/0.5 ML SYR IV PRN ×7 (01:24→15:14)
[2020-06-21] MEDS ORDERED: ACETAMINOPHEN 500 MG TAB PO PRN (03:13)
[2020-06-21 06:14] LABS: Hemoglobin 10.6 g/dL (12.0-16.0); Mean Corpuscular Hemoglobin 24.4 pg (25-34); Mean Corpuscular Hgb Conc 33.1 g/dL (32-36); Mean Corpuscular Volume 73.7 fL (80-100); Nucleated RBC # (auto) 0.04 K/uL (0-0); Nucleated RBC % (auto) 0.3 %; Platelet Count 217 K/uL (130-400); RDW Coefficient of Variation 19.9 % (11.5-14.5); Red Blood Count 4.34 M/uL (4.2-5.4)
[2020-06-21 07:02] LABS: BUN Creatinine Ratio 11.8 (10-20); Calcium 8.4 mg/dl (8.5-10.1); Creatinine Clr Calc Pharmacy 97.3 ml/min; Est GFR (African American) 123.4; Est GFR (Non-African American) 106.4; Magnesium 2.3 mg/dl (1.8-2.4); Potassium 3.8 mmol/L (3.5-5.1)
--- NOTE | 2020-06-21 07:39 | XRay Report ---
KUB HISTORY: Acute generalized abdominal pain with inflammatory bowel disease Crohn's; continued pain COMPARISON: Acute abdominal series radiographs 06/19/2020 FINDINGS: Cholecystectomy. Bowel gas pattern is nonobstructive. Gas-filled transverse colon. Mild fec al retention. IVC filter noted at the level of L3. Surgical clips project over the central pelvis. N o renal calculi. No ureteral calculi. No pneumoperitoneum or pneumatosis. No fracture. IMPRESSION: Nonobstructive bowel gas pattern. ACT 112: Negative or not required by law. The above report was generated using voice recognition software. It may contain grammatical, syntax o r spelling errors. Electronically signed by: Hiram Robles M.D. 06/21/2020 7:38 AM
[2020-06-21] MEDS: HYDROCORTISONE ACETATE 25 MG SUPP PR SCH (09:39)
[2020-06-21] MEDS: IRON SUCROSE 300 MG in SODIUM CHLORIDE 0.9% 250 ML IV SCH (09:44)
[2020-06-21] MEDS: SODIUM CHLORIDE 0.9% 1000ML 1,000 ML IV SCH (09:53)
--- NOTE | 2020-06-21 11:41 | Hospitalist Progress Note ---
Date of Service June 21, 2020 Assessment & Plan (1) Crohn's disease: Per patient, longstanding Crohn's with many prior surgeries. Has been to [facility] and [place] in the past. Presently reports several days of diarrhea and bloody bowel movements. - IV steroids - IV fluids - Pain and nausea control - GI consult -> EGD/flex sig on 06/20 showed some mild erythema/irritation in the rectum, but otherwise no indication of active Crohn's disease. - Will get CT a/p today. (2) DVT prophylaxis: Has IVC filter, so must have had a DVT at some point. - SCDs - With active bleeding. Admission and Anticipated Discharge Date Admission Date: June 19, 2020 Subjective Reports that her pain is under better control today. Reports no fevers/chills, chest pain, shortness of breath, or vomiting. Physical Exam Constitutional: WD/WN, vitals as above Eyes: EOM intact bilaterally; no conjunctival abnormality ENMT: external ear and nose normal, oropharynx normal Neck: trachea midline, no thyromegaly normal visual inspection Respiratory: normal respiratory effort, lungs clear to auscultation no respiratory distress Cardiovascular: RRR, no murmur, no edema Gastrointestinal (Abdomen): Inspection/Auscultation: abdomen normal to inspection and + hypoactive bowel sounds; abdomen not distended Percussion/Palpation: + abdomen tender (Diffuse) and abdomen soft; no guarding and abdomen not rigid Musculoskeletal: no cyanosis or clubbing, extremities motor strength 5/5 Skin: no rashes, warm and dry Neurologic: moves all extremities and awake Psychiatric: Orientation: alert, oriented to person and cooperative Results & Data Results & Data ([facility]) Vital Signs (Past 12 Hours) Vital Signs Temp Pulse Resp BP Pulse Ox 06/21/20 10:33 20 142/102 H 93 06/21/20 09:53 145/90 H 06/21/20 08:00 36.8 C 78 18 108/70 94 PG Care Time/CCT Total # of Minutes Spent Total Time Spent with Patient: Total time spent is greater than 50% in coordination of care (as documented) at patient's floor/unit and/or counseling patient: Coding Level of Care Code 30681 Subseq Hosp Care Lvl 2 Diagnoses Crohn's disease K50.919 Digestive disease complication type: unspecified complication Gastrointestinal tract location: unspecified location DVT prophylaxis Z29.9 (1) Crohn's disease Digestive disease complication type: unspecified complication Gastrointestinal tract location: unspecified location Qualified Code(s): K50.919 - Crohn's disease, unspecified, with unspecified complications
[2020-06-21] MEDS ORDERED: IOVERSOL 100ml IV PRN (14:00)
[2020-06-21] MEDS ORDERED: DiphenhydrAMINE HCL 50 MG/ML VIAL IV ONE (14:03)
--- NOTE | 2020-06-21 14:47 | CT Scan Report ---
ABDOMEN AND PELVIS CT WITH IV AND ORAL CONTRAST CT DOSE: 666.12 mGy.cm HISTORY: Acute generalized abdominal pain with cramping Abdominal pain, cramping TECHNIQUE: Multiaxial CT images of the abdomen and pelvis were performed following the IV administrat ion of 94 cc of Optiray 320 and oral contrast. A dose lowering technique was utilized adhering to th e principles of ALARA. COMPARISON STUDY: KUB of same day, CT abdomen and pelvis 04/07/2020 FINDINGS: There is mild linear subsegmental bibasilar atelectasis. No pneumatosis or pneumoperitoneum. The imag ed inferior cardiac chambers are unremarkable. Trace pericardial effusion. The spleen, pancreas and a drenal glands are unremarkable. Cholecystectomy. Probable hepatic steatosis. Patency of the hepatic a nd portal veins. The kidneys are unremarkable. A surgical clip is again noted within the distribution of the mid to distal right ureter. Pelvic floor relaxation. The urinary bladder is unremarkable. Hys terectomy. No adnexal mass lesions. Aorta is unremarkable. Infrarenal IVC filter. No adenopathy. Moderate distention of the debris-filled stomach is suggestive of recent meal. No small bowel obstruc tion. Moderate fecal retention. Chronic postoperative changes of the large and small bowel. The appen marta is not definitively seen. There is no secondary evidence of acute appendicitis. Mild free pelvic fluid, possibly physiologic. Stranding along the ventral abdominal wall may be on a postsurgical basi s. The bones appear intact. IMPRESSION: 1. No bowel obstruction or bowel wall thickening. 2. Moderate fecal retention. 3. Chronic postoperative changes as above. 4. Small volume of free fluid within the dependent pelvis, likely physiologic. ACT 112: Negative or not required by law. The above report was generated using voice recognition software. It may contain grammatical, syntax o r spelling errors. Electronically signed by: Hiram Robles M.D. 06/21/2020 2:45 PM
--- NOTE | 2020-06-21 16:38 | Gastroenterology Progress Note ---
Date of Service June 21, 2020 Assessment & Plan (1) Hematochezia: There is a disconnect between the blood seen in the colon on Flexible sigmoidscopy and lack of findings to explain it. I told patient she needs to save all stools so nurse can record what stool look like and amount of blood. Diarrhea--again, I told patient we need to the stool volume and consistency. If she is indeed having diarrrhea then constipation with overflow diarrhea may be the culprit ? inflammatory bowel disease---There is no indication of inflammtory bowel disease present on flex sig or CT scan so would not use any meds for IBD abd pain---could be constipation, adhesions from multiple surgeries. The fact she is eating so well could also indicate the pain is not as severe as she is stating. Would taper off the IV narcotics. Admission and Anticipated Discharge Date Admission Date: June 19, 2020 Subjective cc abd pain HPI Reviewed some recent data in [facility] system and noted multiple ER visits to [facility] in last year with abd pain and discussion in notes regarding a focus on asking for pain meds. She has signed out AMA and also declined admission there in the past when hospitalist attending stated no narcotics would be used. There is mention of self harm to rectum in the past. She had a flexible sigmoidoscopy at [facility] 02/2019 showing blood, anal fissure and some rectal ulcers but not typical of inflammatory bowel disease and biopsies also did not support inflammtory bowel disease. Pt today had KUB and CT A/p and reviewed results as well as looked at the CT films. NO mention of bowel thickening and there is quite a bit of fecal retention. She states she has frequent stools and there is a lot of blood but when nursing has asked her produce a stool specimen they have not been forthcoming. Per nursing she is eating very well. Pt complains of ongoing abd pain. Physical Exam Respiratory: normal respiratory effort, lungs clear to auscultation Cardiovascular: RRR, no murmur, no edema Gastrointestinal (Abdomen): pos bs, LLQ guarding but no rebound. Results & Data ([facility]) Vital Signs (Past 12 Hours) Vital Signs Temp Pulse Pulse Resp BP Pulse Ox 06/21/20 15:44 36.6 C 67 17 104/67 96 06/21/20 10:33 20 142/102 H 93 06/21/20 09:53 145/90 H 06/21/20 08:00 36.8 C 78 18 108/70 94
--- NOTE | 2020-06-21 17:24 | Discharge Summary ---
Date of Service June 21, 2020 Admission HPI Per Admitting Provider For EGd and flex sig Principal Diagnosis Abdominal pain NOS -> Possible constipation Concern for drug-seeking behavior Discharge Exam Constitutional WD/WN, vitals as above Eyes EOM intact bilaterally; no conjunctival abnormality ENMT external ear and nose normal, oropharynx normal Neck trachea midline, no thyromegaly normal visual inspection Respiratory normal respiratory effort, lungs clear to auscultation no respiratory distress Cardiovascular RRR, no murmur, no edema Gastrointestinal (Abdomen) Inspection/Auscultation: abdomen normal to inspection; abdomen not distended Percussion/Palpation: + abdomen tender and abdomen soft; no guarding and abdomen not rigid Musculoskeletal no cyanosis or clubbing, extremities motor strength 5/5 Skin no rashes, warm and dry Neurologic moves all extremities and awake Psychiatric Orientation: alert, oriented to person and cooperative Discharge Data Allergies Allergy/AdvReac Type Severity Reaction Status Date / Time metoclopramide Allergy Intermediate nausea/vomi Unverified 06/19/20 06:15 ting oxycodone Allergy Intermediate pruritis Unverified 06/19/20 06:15 adhesive Allergy Mild skin Unverified 06/19/20 06:15 irritation Penicillins Allergy Mild rx as a Unverified 06/19/20 06:15 child prochlorperazine Allergy Mild nausea/vomi Unverified 06/19/20 06:15 ting tramadol Allergy Mild pruritis Verified 06/19/20 06:15 Iodinated Contrast Media AdvReac Mild itching Unverified 06/19/20 06:15 mushroom AdvReac Verified 06/19/20 11:46 Consultations 06/19/20 07:43 ED Decision to Admit Stat 06/19/20 09:51 Consult Gastroenterology Routine Procedures Performed Operation Date: 06/20/20 16:30 Actual Procedures p Esophagogastroduodenoscopy - Ed garcia Flexible Sigmoidoscopy - Ed Gibson Ordered Studies 06/21/20 10:28 CT abd pelvis oral and IV con Routine Hospital Course (1) Crohn's disease: Per patient, longstanding Crohn's with many prior surgeries. Has been to [facility] and [facility] in the past. Reported several days of diarrhea and bloody bowel movements. - Initially on IV steroids for flare; however, EGD/flex sig on 06/20 showed some mild erythema/irritation in the rectum, but otherwise no indication of active Crohn's disease. Likewise, CT a/p on 06/21 showed no active IBD and only constipation. - Discussed with Dr. Prieto on 06/21 who reports concerns about drug-seeking behavior in [facility] records. Frequent ER visits with demands for pain medication. Frequent leaving AMA. Even some concern for self-induced rectal trauma. In addition, on their last flex sig at [facility], there was no evidence of active Crohn's or ulcerative colitis. In our hospital, despite telling patient that we needed a stool sample for C. diff testing, she frequently moved the collection hat and would report diarrhea and hematochezia, but none was witnessed in the 24+ hours prior to discharge. When I informed her of reduction in IV pain medication, she reported that this was "not fair" to her and would not accept any explanation about why I felt it would be beneficial to lower narcotic pain medications. When I would not give further opioids, she decided she would leave. In sum, in future encounters, I would have higher concern for pain-seeking behavior. (2) DVT prophylaxis: Has IVC filter, so must have had a DVT at some point. - SCDs Total Time Total Time Spent Total Time Spent (In Minutes): 35 Discharge Plan Discharge Items Patient Disposition: Home - Self-Care Reason For Visit: [place] Discharge Diagnosis: Abdominal pain - Possibly constipation Activity: Resume your previous activity Non-emergency contact: Primary Care Provider Call non-emergency contact if: your symptoms worsen and your temperature is above 101 Follow-up/Referrals: PCP,NO [Primary Care Provider] - Diet: Regular Addtl Attending Provider Instructions: You were admitted for abdominal pain. I am very relieved to tell you that you DO NOT have a Crohn's flare or ulcerative colitis flare. We know this from the flexible sigmoidoscopy yesterday and your CT scan today. We feel the abdominal pain could be caused by constipation as the sigmoidoscopy and CT scan both showed high stool burden higher up in the large intestine. The "overflow" from this constipation could be the diarrhea you report having. Please follow up with your GI doctors at your earliest convenience and if your abdominal pain does not improve. Please avoid opiate medications as they can worsen the stool burden and could make your pain worse. I do hope you feel better soon! Pending Studies at Discharge: No Stand-Alone Forms: My [facility], Smoking Cessation Medications and DC Order Prescriptions: Continued dicyclomine [Bentyl] 10 mg/mL Solution 0 mg IM UD PRN (Reason: Stomach Upset) RF: 0 multivitamin Tablet,Chewable 1 tab PO QAM RF: 0 Discontinued Remicade 100 mg Recon Soln 0 mg IV Q8WK RF: 0 Discharge Orders: Discharge Order (Routine); Ordered 06/21/20 Ordered By: Maykel Russo Admission Data Admit Date/Time: 06/19/20 08:16 Attending Provider: Maykel Russo Admit Provider: Maykel Russo Primary Care Provider: PCP,NO Other Providers: Chago Juarez ; Ed Gibson Other Interventions: Discharge Summary Assessment (RN) Last Done: 06/21/20 18:27 DC Date/Time DO NOT enter until pt leaves facility: 06/21/20 19:31 Coding Level of Care Code D/C Day Management >30 mins Diagnoses Crohn's disease K50.919 Digestive disease complication type: unspecified complication Gastrointestinal tract location: unspecified location DVT prophylaxis Z29.9
[2020-06-21] MEDS ORDERED: HYDROmorphone INJ 0.5 MG/0.5 ML SYR IV PRN (17:31)
== END 2020-06-21 19:31 | disposition home or self-care (01) | DRG 386 ==
LOC: ED 03:19 → 3N 08:16